=== PATIENT | female | born 2000 | race Caucasian/White ===

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

== ENCOUNTER 2021-03-29 14:56 | Outpatient (REF) | payer MEDICAID, SELFPAY ==
[2021-03-30 09:27] LABS: HCG Qual (Serum) Negative
[2021-03-30 09:51] LABS: HCG Quant, Pregnancy < 1 mIU/mL (1-3)
== END 2021-03-29 14:57 | disposition home or self-care (01) ==
LOC: NCHCN 14:56
PROVIDERS: PCP Internal Medicine; Visit Provider Nurse Practitioner Family
DX: N91.2 Amenorrhea, unspecified (principal)
CPT/HCPCS: 84702; 84703

== ENCOUNTER 2021-04-05 20:26 | Outpatient (REF) | payer MEDICAID, SELFPAY ==
[2021-04-05 20:28] LABS: Abs Immature Grans 0.08 10^3/uL (0.0-0.06); Absolute Basophil Count 0.07 10^3/uL (0.0-0.2); Absolute Eosinophil Count 0.16 10^3/uL (0.0-0.7); Absolute Lymphocyte Count 2.03 10^3/uL (1.2-3.4); Absolute Monocyte Count 0.66 10^3/uL (0.1-0.8); Absolute Neutrophil Count 7.24 10^3/uL (1.2-6.7); Basophils % 0.7; Eosinophils % 1.6; HCT 40.6 % (36.0-46.0); HGB 13.3 g/dL (11.2-15.7); Immature Grans % 0.8; Lymphocytes % 19.8; MCH 27.1 pg (27.0-33.0); MCHC 32.8 % (32.0-36.0); MCV 82.9 fL (80-95); MPV 11.5 fL (8.0-11.0); Monocytes % 6.4; Neutrophils % 70.7; Nucleated RBC 0 %; Platelet Count 340 10^3/uL (130-400); RDW 12.8 % (11.7-14.6); RDW-SD 38.7 fL; WBC 10.24 10^3/uL (4.4-10.8)
[2021-04-05 20:41] LABS: HCG Qual (Serum) Negative
[2021-04-05 20:59] LABS: TSH (W/Ref FT4) 1.42 uIU/mL (0.52-4.13)
[2021-04-05 21:02] LABS: Hemoglobin A1C 5.2 % (<5.7)
[2021-04-05 21:19] LABS: ALT 94 U/L (14-59); AST 29 U/L (15-37); Albumin 3.8 g/dL (3.4-5.0); Alkaline Phosphatase 106 U/L (46-116); BUN 12 mg/dL (7-18); Bilirubin, Total 0.2 mg/dL (0.2-1.0); CREATININE 0.7 mg/dL (0.55-1.02); Calcium 9.4 mg/dL (8.5-10.1); Chloride 106 mmol/L (98-107); Glucose 77 mg/dL (74-106); Potassium 4.5 mmol/L (3.5-5.1); Sodium 143 mmol/L (136-145); Total Protein 6.9 g/dL (6.4-8.2)
[2021-04-06 17:25] LABS: FSH 15.4 mIU/mL (See Note); LH 43.8 mIU/mL (See Note)
[2021-04-08 16:10] LABS: Dehydroepiandrosterone (DHEA) 6.8 ng/mL (<13)
[2021-04-08 16:20] LABS: Testosterone, Free 1.59 ng/dL (0.06-1.08); Testosterone, Total 61 ng/dL (8-60)
[2021-04-10 00:21] LABS: 17-Hydroxyprogesterone 152 ng/dL
== END 2021-04-05 20:27 | disposition home or self-care (01) ==
LOC: NCHCN 20:26
PROVIDERS: PCP Internal Medicine; Visit Provider Physician Assistant
DX: N91.2 Amenorrhea, unspecified (principal); L68.0 Hirsutism; R79.89 Other specified abnormal findings of blood chemistry
CPT/HCPCS: 80053; 84402; 84403; 82626; 83001; 83002; 83036; 83498; 84443; 84703; 85025